=== PATIENT | female | born 1980 | race Caucasian/White ===

== ENCOUNTER 2016-12-03 11:20 | Emergency (ER) | payer MEDICAID ==
[~2016-12-03] VITALS: Ht 162.6 cm; Wt 81.5 kg
[2016-12-03 14:47] VITALS: BP 122/74
== END 2016-12-03 14:50 | disposition home or self-care (01) ==
LOC: EMS 11:28
DX: J40 Bronchitis, not specified as acute or chronic (principal)
CPT/HCPCS: 99283

== ENCOUNTER 2016-12-23 09:49 | Emergency (ER) | payer MEDICAID ==
[~2016-12-23] VITALS: Ht 162.6 cm; Wt 72.7 kg
[2016-12-23] MEDS ORDERED: GuaiFENesin [SUGAR-FREE] 200 MG/10 ML SOLUTION UDCUP PO ONE (11:30)
[2016-12-23] MEDS: IBUPROFEN 800 MG TABLET PO ONE ×2 (11:37→11:39)
[2016-12-23 12:43] VITALS: BP 118/89
== END 2016-12-23 12:45 | disposition home or self-care (01) ==
LOC: EMS 09:50
DX: J40 Bronchitis, not specified as acute or chronic (principal)
CPT/HCPCS: 71020; 99284

== ENCOUNTER 2016-12-29 11:39 | Emergency (ER) | payer MEDICAID ==
[~2016-12-29] VITALS: Ht 162.6 cm; Wt 84.1 kg
[2016-12-29] MEDS ORDERED: HydrOXYzine PAMOATE 50 MG CAPSULE PO ONE (12:45)
[2016-12-29 13:26] LABS: BASOPHILS % (AUTO) 0.3 % (0.0-2.0); EOSINOPHILS % (AUTO) 1.6 % (1.0-6.0); HEMATOCRIT 41.6 % (36-46); HEMOGLOBIN 13.4 g/dL (12.0-16.0); LYMPHOCYTES # (AUTO) 1.7 K/uL (1.0-4.8); LYMPHOCYTES % (AUTO) 24.3 % (22.0-44.0); MEAN CORPUSCULAR HEMOGLOBIN 25.7 pg (26.0-34.0); MEAN CORPUSCULAR HGB CONC 32.1 G/dL (31.0-37.0); MEAN CORPUSCULAR VOLUME 80 fL (80-100); MONOCYTES # (AUTO) 0.5 K/uL (0.1-1.0); NEUTROPHILS # (AUTO) 4.8 K/uL (1.8-7.7); NEUTROPHILS % (AUTO) 66.8 % (40.0-70.0); PLATELET COUNT (AUTO) 247 K/uL (150-450); RED CELL DISTRIBUTION WIDTH 13.8 % (11.5-14.5); WHITE BLOOD COUNT (AUTO) 7.1 K/uL (4.5-11.0)
[2016-12-29 13:38] LABS: ANION GAP 6 mmol/L (8-16); CARBON DIOXIDE 26 mmol/L (22-29); CHLORIDE 101 mmol/L (98-107); CREATININE 0.68 mg/dL (0.60-1.30); GLOMERULAR FILTR. RATE CALC > 60 mL/min (>60); POTASSIUM 3.8 mmol/L (3.5-5.1); SODIUM SERUM 133 mmol/L (136-145); UREA NITROGEN, BLOOD 10 mg/dL (7-18)
[2016-12-29 13:45] LABS: ALANINE AMINOTRANSFERASE 38 U/L (12-78); ALBUMIN 3.8 g/dL (3.4-5.0); ASPARTATE AMINOTRANSFERASE 22 U/L (15-37); BILIRUBIN,TOTAL 0.5 mg/dL (0.1-1.0); TOTAL PROTEIN, SERUM 8.3 g/dL (6.4-8.2)
[2016-12-29 14:00] VITALS: BP 128/78
== END 2016-12-29 14:21 | disposition home or self-care (01) ==
LOC: EMS 11:40
DX: M25.512 Pain in left shoulder (principal); J40 Bronchitis, not specified as acute or chronic
CPT/HCPCS: 71020; 93005; 99285

== ENCOUNTER 2017-01-26 12:49 | Emergency (ER) | payer MEDICAID ==
[~2017-01-26] VITALS: Ht 162.6 cm; Wt 72.7 kg
[2017-01-26] MEDS ORDERED: VIST50 PO (12:54)
[2017-01-26 13:11] VITALS: BP 127/67
== END 2017-01-26 13:37 | disposition home or self-care (01) ==
LOC: EMS 12:50
DX: F41.9 Anxiety disorder, unspecified (principal); J40 Bronchitis, not specified as acute or chronic
CPT/HCPCS: 99283

== ENCOUNTER 2017-05-05 09:41 | Emergency (ER) | payer MEDICAID ==
[~2017-05-05] VITALS: Ht 162.6 cm; Wt 86.4 kg
[~2017-05-05 09:41] MED LIST: VIST50 PO
[2017-05-05 11:56] VITALS: BP 119/89
== END 2017-05-05 12:03 | disposition home or self-care (01) ==
LOC: EDUNIT# 09:41 → EMS 09:43
DX: J06.9 Acute upper respiratory infection, unspecified (principal); J40 Bronchitis, not specified as acute or chronic
CPT/HCPCS: 99283

== ENCOUNTER 2017-07-04 20:00 | Emergency (ER) | payer MEDICAID ==
[~2017-07-04] VITALS: Ht 167.6 cm; Wt 81.8 kg
[2017-07-04] MEDS ORDERED: DULO20CA30 PO (20:14)
[2017-07-04] MEDS ORDERED: CETI-290 PO (20:14)
[2017-07-04] MEDS ORDERED: BUPR-93 PO (20:14)
[2017-07-04] MEDS ORDERED: GABA-531 PO (20:14)
[2017-07-04] MEDS ORDERED: FLUO15OI TP (20:14)
[2017-07-04] MEDS ORDERED: LORazepam 0.5 MG TABLET PO ONE (21:15)
[2017-07-04 22:20] VITALS: BP 128/77
== END 2017-07-04 22:32 | disposition home or self-care (01) ==
LOC: EMS 20:01
DX: J20.9 Acute bronchitis, unspecified (principal); F41.9 Anxiety disorder, unspecified
CPT/HCPCS: 93005; 99284

== ENCOUNTER 2018-06-22 12:43 | Emergency (ER) | payer MEDICAID ==
[~2018-06-22] VITALS: Ht 160 cm; Wt 94.0 kg
[~2018-06-22 12:43] MED LIST changes: +AMLO-511 PO; +BUPR-93 PO; +CETI-290 PO; +DULO20CA30 PO; +FLUO15OI TP; +GABA-531 PO; +LORA0.5T2 PO; +METO5TAB95 PO; +NORT25 PO; +OMEP20 PO; +SUMA25TA9 PO; -VIST50 PO
[2018-06-22] MEDS ORDERED: DULO60CA44 PO (13:17)
[2018-06-22] MEDS ORDERED: KETOROLAC TROMETHAMINE 30 MG/ML VIAL IM ONE (14:45)
[2018-06-22] MEDS ORDERED: IBUPROFEN 600 MG TABLET PO ONE (15:00)
[2018-06-22 15:33] VITALS: BP 139/82
[2018-06-22 15:38] LABS: GLUCOSE,POINT OF CARE 111 MG/DL (70-110)
== END 2018-06-22 15:54 | disposition home or self-care (01) ==
LOC: EMS 12:44
DX: G89.29 Other chronic pain (principal); M54.5 Low back pain; M25.561 Pain in right knee; M25.562 Pain in left knee; J40 Bronchitis, not specified as acute or chronic; F41.9 Anxiety disorder, unspecified
CPT/HCPCS: 82948; J1885

== ENCOUNTER 2018-08-26 10:11 | Emergency (ER) | payer MEDICAID ==
[~2018-08-26] VITALS: Ht 162.6 cm; Wt 100.0 kg
[~2018-08-26 10:11] MED LIST changes: +CETI-170 PO; -CETI-290 PO; -DULO20CA30 PO; +DULO60CA44 PO
[2018-08-26] MEDS ORDERED: LISI-661 PO (10:20)
[2018-08-26] MEDS ORDERED: LURA20TA PO (10:20)
[2018-08-26] MEDS ORDERED: TOPI25 PO (10:20)
[2018-08-26] MEDS ORDERED: CIP250 PO (10:20)
[2018-08-26] MEDS ORDERED: BECL10.62 IH (10:20)
[2018-08-26] MEDS ORDERED: KETOROLAC TROMETHAMINE 60 MG/2 ML VIAL IM ONE (11:15)
[2018-08-26] MEDS ORDERED: METHOCARBAMOL 500 MG TABLET PO ONE (11:15)
[2018-08-26] MEDS ORDERED: IBUPROFEN 600 MG TABLET PO ONE (11:30)
[2018-08-26 11:45] VITALS: BP 123/78
== END 2018-08-26 12:15 | disposition home or self-care (01) ==
LOC: EMS 10:11
DX: M54.42 Lumbago with sciatica, left side (principal); G89.29 Other chronic pain; F41.9 Anxiety disorder, unspecified; J40 Bronchitis, not specified as acute or chronic; Z79.899 Other long term (current) drug therapy
CPT/HCPCS: J1885

== ENCOUNTER 2018-09-25 08:25 | Emergency (ER) | payer MEDICAID ==
[~2018-09-25] VITALS: Ht 162.6 cm; Wt 109.1 kg
[~2018-09-25 08:25] MED LIST changes: +BECL10.62 IH; +CIP250 PO; +LISI-661 PO; +LURA20TA PO; +TOPI25 PO
[2018-09-25] MEDS ORDERED: DULO60CA44 PO (08:37)
[2018-09-25] MEDS ORDERED: PROM25 PO (08:37)
[2018-09-25] MEDS ORDERED: BECL10.6 IH (08:37)
[2018-09-25] MEDS ORDERED: OXYB5 PO (08:37)
[2018-09-25 11:37] VITALS: BP 124/94
== END 2018-09-25 11:52 | disposition left against medical advice (07) ==
LOC: EMS 08:26
DX: R06.02 Shortness of breath (principal); R05 Cough; E11.9 Type 2 diabetes mellitus without complications; I10 Essential (primary) hypertension; F41.9 Anxiety disorder, unspecified; F32.9 Major depressive disorder, single episode, unspecified; Z79.899 Other long term (current) drug therapy

== ENCOUNTER 2019-02-26 08:55 | Emergency (ER) | payer MEDICAID ==
[~2019-02-26] VITALS: Ht 162.6 cm; Wt 104.5 kg
[~2019-02-26 08:55] MED LIST changes: -AMLO-511 PO; +AMLO5TAB9 PO; +BECL10.6 IH; -CETI-170 PO; -CIP250 PO; -FLUO15OI TP; +OXYB5 PO; +PROM25 PO
[2019-02-26] MEDS ORDERED: MONT10TA21 PO (09:07)
[2019-02-26] MEDS ORDERED: HYD50 PO (09:07)
[2019-02-26] MEDS ORDERED: PRED10 PO (09:07)
[2019-02-26] MEDS ORDERED: CYCL10 PO (09:07)
[2019-02-26] MEDS ORDERED: IBUPROFEN 800 MG TABLET PO ONE (10:45)
[2019-02-26] MEDS ORDERED: ACETAMINOPHEN 500 MG TABLET PO ONE (10:45)
[2019-02-26] MEDS ORDERED: METOCLOPRAMIDE HCL 10 MG TABLET PO ONE (10:45)
[2019-02-26] MEDS ORDERED: DiphenhydrAMINE HCL 25 MG CAPSULE PO ONE (10:45)
[2019-02-26 12:15] VITALS: BP 101/74
== END 2019-02-26 12:17 | disposition home or self-care (01) ==
LOC: EMS 08:55
DX: G43.909 Migraine, unspecified, not intractable, without status migrainosus (principal); M54.32 Sciatica, left side; G89.29 Other chronic pain; I10 Essential (primary) hypertension; J45.909 Unspecified asthma, uncomplicated; F41.9 Anxiety disorder, unspecified; F32.9 Major depressive disorder, single episode, unspecified; Z79.899 Other long term (current) drug therapy

== ENCOUNTER 2021-01-02 12:35 | Emergency (ER) | payer MEDICAID ==
[~2021-01-02] VITALS: Ht 162.6 cm; Wt 100.0 kg
[~2021-01-02 12:35] MED LIST changes: +AMLO-257 PO; -AMLO5TAB9 PO; +CYCL10 PO; +DULO-8 PO; -DULO60CA44 PO; +GABA-1181 PO; -GABA-531 PO; +HYD50 PO; -LISI-661 PO; +LISI-893 PO; +LORA-999 PO; -LORA0.5T2 PO; +MONT-35 PO; +PRED10 PO; +PROM-163 PO; -PROM25 PO
[2021-01-02 14:22] LABS: APPEARANCE,URINE CLEAR (CLEAR); BILIRUBIN,URINE NEGATIVE (NEGATIVE); GLUCOSE, URINE (UA) NEGATIVE (NEGATIVE); KETONES,URINE NEGATIVE (NEGATIVE); LEUKOCYTE ESTERASE ,URINE NEGATIVE (NEGATIVE); NITRATE,URINE NEGATIVE (NEGATIVE); OCCULT BLOOD,URINE TRACE (NEGATIVE); PROTEIN,URINE NEGATIVE (NEGATIVE); UROBILINOGEN,URINE 0.2 mg/dL (<=1.0)
[2021-01-02] MEDS ORDERED: IBUPROFEN 600 MG TABLET PO ONE (14:30)
[2021-01-02 14:34] LABS: BACTERIA,URINE None Seen /HPF (None Seen); RBC,URINE 0-2 /HPF (0-2); SQUAMOUS EPITHELIAL CELL,UR Few /LPF (None Seen); WBC,URINE 0-2 /HPF (0-5)
[2021-01-02 16:47] VITALS: BP 147/77
== END 2021-01-02 16:55 | disposition home or self-care (01) ==
LOC: EMS 12:46
DX: R10.31 Right lower quadrant pain (principal); R30.0 Dysuria; F41.9 Anxiety disorder, unspecified; J45.909 Unspecified asthma, uncomplicated; F32.9 Major depressive disorder, single episode, unspecified; G43.909 Migraine, unspecified, not intractable, without status migrainosus; Z79.899 Other long term (current) drug therapy
CPT/HCPCS: 74176; 81001; 84703; 99284; Z7502; Z7610